=== PATIENT | female | born 1995 | race Caucasian/White ===

== ENCOUNTER 2018-07-01 12:57 | Emergency (ER) | payer OTHER ==
[~2018-07-01] VITALS: Ht 167.6 cm; Wt 66.0 kg
[2018-07-01] MEDS ORDERED: PROAIR HFA8.5 GM INH (13:14)
[2018-07-01] MEDS ORDERED: BIRTH CONTROL (13:14)
[2018-07-01] MEDS ORDERED: BREO ELLIPTA I1 EACH INH (13:15)
== END 2018-07-01 15:35 | disposition home or self-care (01) ==
LOC: ED 12:57
DX: R07.89 Other chest pain (principal); J98.2 Interstitial emphysema; J45.909 Unspecified asthma, uncomplicated; Z87.01 Personal history of pneumonia (recurrent); Z79.899 Other long term (current) drug therapy
CPT/HCPCS: 71046; 99284-25